=== PATIENT | female | born 1975 | race African-American/Black ===

== ENCOUNTER 2017-05-12 17:16 | Emergency (ER) | payer OTHER ==
[2017-05-12] MEDS ORDERED: Adenosine 6 MG/2 ML VIAL ONE (17:36)
[2017-05-12 18:22] LABS: #Eosinphils 0.2 thou/uL (0.0-0.7); #Lymphocytes 2.5 thou/uL (1.20-3.40); #Monocytes 0.4 thou/uL (0.11-0.59); #Neutrophils 5.2 thou/uL (1.40-6.50); %Basophils 0.2 % (0.0-1.0); %Eosinophils 2.2 % (0.0-10.0); %Lymphocytes 30.5 % (21.0-51.0); %Monocytes 4.6 % (0.0-10.0); Hematocrit 37.1 % (36.0-47.0); Mean Platelet Volume 7.2 fL (7.4-10.4); Red Blood Cell (RBC) Count 3.98 mill/uL (4.20-5.40); White Blood Cell (WBC) Count 8.3 thou/uL (4.8-10.8)
[2017-05-12 18:51] LABS: Troponin I Less than 0.010 ng/mL (< 0.028)
[2017-05-12 19:30] LABS: ALT (SGPT) 7 U/L (8-55); AST (SGOT) 14 U/L (5-34); Alkaline Phosphatase 79 U/L (40-150); Anion Gap 12 mmol/L (10-20); BUN (Urea Nitrogen) 10 mg/dL (7.0-18.7); Bilirubin, Total 0.5 mg/dL (0.2-1.2); Calc. Creatinine Clearance 0 mL/min (70-130); Calcium 8.6 mg/dL (7.8-10.44); Carbon Dioxide 19 mmol/L (22-29); Chloride 110 mmol/L (98-107); Estimated GFR-MDRD Greater than 90; Globulin 3.6 g/dL (2.4-3.5); Protein, Total 7.3 g/dL (6.0-8.3)
--- NOTE | 2017-05-12 20:26 | RAD ---
PORTABLE CHEST 05/12/17 PROVIDED CLINICAL HISTORY: Heart palpitations. FINDINGS: Comparison 08/09/16. Cardiac and mediastinal silhouette is within normal limits for portable technique. The lungs appear c lear. No pleural fluid or pneumothorax apparent. IMPRESSION: No evidence for an acute cardiopulmonary process. POS: [facility]
== END 2017-05-12 20:12 | disposition home or self-care (01) ==
LOC: ERS 17:16
DX: I47.1 Supraventricular tachycardia (principal); I10 Essential (primary) hypertension
CPT/HCPCS: 36415; 71010; 80053; 82553; 83880; 84484; 85025; 93005; 96361; 96374; J0153

== ENCOUNTER 2018-08-02 11:47 | Emergency (ER) | payer BC, SELFPAY ==
[2018-08-02 12:34] LABS: #Eosinphils 0.2 thou/uL (0.0-0.7); #Lymphocytes 1.8 thou/uL (1.20-3.40); #Monocytes 0.2 thou/uL (0.11-0.59); #Neutrophils 4.2 thou/uL (1.40-6.50); %Basophils 0.4 % (0.0-1.0); %Eosinophils 2.5 % (0.0-10.0); %Lymphocytes 28.5 % (21.0-51.0); %Monocytes 3.5 % (0.0-10.0); %Neutrophils 65.1 % (42.0-75.0); Hemoglobin 12.6 g/dL (12.0-16.0); Mean Corpuscular HGB CONC 30.4 g/dL (32.0-36.0); Mean Corpuscular Hemoglobin 28.1 pg (27.0-31.0); Mean Corpuscular Volume 92.3 fL (78.0-98.0); Platelet Count 248 thou/uL (130-400); RBC Distribution Width 12.7 % (11.5-14.5); Red Blood Cell (RBC) Count 4.49 mill/uL (4.20-5.40); White Blood Cell (WBC) Count 6.4 thou/uL (4.8-10.8)
[2018-08-02 12:55] LABS: ALT (SGPT) 9 U/L (8-55); AST (SGOT) 11 U/L (5-34); Albumin 4.1 g/dL (3.5-5.0); Alkaline Phosphatase 102 U/L (40-150); Anion Gap 9 mmol/L (10-20); BUN (Urea Nitrogen) 12 mg/dL (7.0-18.7); Bilirubin, Total 0.5 mg/dL (0.2-1.2); CK (CPK) 98 U/L (29-168); Calc. Creatinine Clearance 0 mL/min (70-130); Calcium 9.4 mg/dL (7.8-10.44); Carbon Dioxide 28 mmol/L (22-29); Chloride 106 mmol/L (98-107); Estimated GFR-MDRD Greater than 90; Globulin 3.6 g/dL (2.4-3.5); Glucose 94 mg/dL (70-105); Lipase 16 U/L (8-78); Potassium 4.3 mmol/L (3.5-5.1); Protein, Total 7.7 g/dL (6.0-8.3); Sodium 139 mmol/L (136-145)
--- NOTE | 2018-08-02 13:58 | RAD ---
CHEST 1 VIEW: Date: 08/02/18 HISTORY: Palpitations, heart fluttering intermittently for 3 days. COMPARISON: 05/12/17. FINDINGS: Heart size is normal. The lungs are clear. No confluent pneumonia, overt edema, or pleural effusion. IMPRESSION: No acute intrathoracic disease. Stable from prior study. POS: [facility]
--- NOTE | 2018-08-06 12:02 | EKG ---
Test Reason : Blood Pressure : / mmHG Vent. Rate : 087 BPM Atrial Rate : 087 BPM P-R Int : 156 ms QRS Dur : 080 ms QT Int : 358 ms P-R-T Axes : 061 005 028 degrees QTc Int : 430 ms Sinus rhythm with sinus arrhythmia with occasional Premature ventricular complexes Otherwise normal ECG Confirmed by JUAN ALEXANDER DO ([id number]), graphics editor JENNY BHAKTA ([id number]) on 08/06/2018 12:02:01 PM Referred By: Confirmed By:JUAN ALEXANDER DO
== END 2018-08-02 13:27 | disposition home or self-care (01) ==
LOC: ERS 11:47
DX: R00.2 Palpitations (principal); I10 Essential (primary) hypertension
CPT/HCPCS: 36415; 71045; 80053; 82550; 83690; 84484; 85025; 93005

== ENCOUNTER 2019-01-01 10:07 | Emergency (ER) | payer BC ==
[2019-01-01] MEDS ORDERED: diphenhydrAMINE 50 MG/ML VIAL ONE (10:39)
[2019-01-01] MEDS ORDERED: Acetaminophen 500 MG TAB ONE (10:39)
[2019-01-01] MEDS ORDERED: Prochlorperazine 10 MG/2 ML VIAL ONE (10:42)
[2019-01-01] MEDS ORDERED: Prochlorperazine 10 MG/2 ML VIAL IVP SCH (11:00)
[2019-01-01 11:15] LABS: #Eosinphils 0.2 thou/uL (0.0-0.7); #Lymphocytes 1.8 thou/uL (1.20-3.40); #Monocytes 0.3 thou/uL (0.11-0.59); #Neutrophils 5.4 thou/uL (1.40-6.50); %Basophils 0.5 % (0.0-1.0); %Eosinophils 2.1 % (0.0-10.0); %Lymphocytes 23.7 % (21.0-51.0); %Monocytes 3.3 % (0.0-10.0); %Neutrophils 70.4 % (42.0-75.0); Mean Corpuscular HGB CONC 33.4 g/dL (32.0-36.0); Mean Corpuscular Hemoglobin 30.1 pg (27.0-31.0); Mean Corpuscular Volume 90.2 fL (78.0-98.0); Mean Platelet Volume 7.1 fL (7.4-10.4); Platelet Count 245 thou/uL (130-400); RBC Distribution Width 12.6 % (11.5-14.5); Red Blood Cell (RBC) Count 4.31 mill/uL (4.20-5.40); White Blood Cell (WBC) Count 7.6 thou/uL (4.8-10.8)
[2019-01-01 11:30] LABS: ALT (SGPT) 12 U/L (8-55); AST (SGOT) 14 U/L (5-34); Albumin 3.8 g/dL (3.5-5.0); Alkaline Phosphatase 101 U/L (40-150); Anion Gap 12 mmol/L (10-20); BUN (Urea Nitrogen) 9 mg/dL (7.0-18.7); Bilirubin, Total 0.5 mg/dL (0.2-1.2); CK (CPK) 92 U/L (29-168); Calc. Creatinine Clearance 0 mL/min (70-130); Calcium 9.4 mg/dL (7.8-10.44); Carbon Dioxide 25 mmol/L (22-29); Chloride 109 mmol/L (98-107); Estimated GFR-MDRD Greater than 90; Glucose 99 mg/dL (70-105); Potassium 3.8 mmol/L (3.5-5.1); Protein, Total 7.8 g/dL (6.0-8.3); Sodium 142 mmol/L (136-145)
--- NOTE | 2019-01-01 11:34 | CT ---
NONCONTRAST CT HEAD: HISTORY: Headache. COMPARISON: 01/03/2015. FINDINGS: There is no evidence of a hemorrhage, acute infarction, mass effect, or midline shift. There has bee n no interval change compared to the prior exam. IMPRESSION: No acute intracranial abnormality is demonstrated. POS: [facility]
[2019-01-01] MEDS ORDERED: Ketorolac Tromethamine 30 MG/ML VIAL ONE (12:05)
== END 2019-01-01 12:47 | disposition home or self-care (01) ==
LOC: SCSER 10:07
DX: R51 Headache (principal); I10 Essential (primary) hypertension; Z79.899 Other long term (current) drug therapy
CPT/HCPCS: 70450; 80053; 82550; 84484; 85025; 93005; 96361; 96374; 96375; J0780; J1200; J1885

== ENCOUNTER 2019-01-09 05:06 | Emergency (ER) | payer BC | END 2019-01-09 05:50 | disposition home or self-care (01) | LOC: ERS 05:06 | DX: R21 Rash and other nonspecific skin eruption (principal); I10 Essential (primary) hypertension; G43.909 Migraine, unspecified, not intractable, without status migrainosus | CPT/HCPCS: 99282 ==

== ENCOUNTER 2019-07-11 08:48 | Emergency (ER) | payer BC, SELFPAY | END 2019-07-11 10:43 | disposition home or self-care (01) | LOC: ERS 08:48 | DX: J02.9 Acute pharyngitis, unspecified (principal); H65.90 Unspecified nonsuppurative otitis media, unspecified ear; I10 Essential (primary) hypertension; G43.909 Migraine, unspecified, not intractable, without status migrainosus | CPT/HCPCS: 87081; 87430; 99283 ==

== ENCOUNTER 2020-03-20 11:48 | Emergency (ER) | payer SELFPAY ==
--- NOTE | 2020-03-20 12:17 | RAD ---
Portable frontal chest radiograph: 03/20/2020 COMPARISON: 08/02/2018 HISTORY: Sudden onset of chest pain FINDINGS: Lungs are clear. Heart and mediastinal contours appear within normal limits. IMPRESSION: No acute findings.
[2020-03-20 12:25] LABS: #Eosinphils 0.1 thou/uL (0.0-0.7); #Lymphocytes 2.3 thou/uL (1.20-3.40); #Monocytes 0.3 thou/uL (0.11-0.59); #Neutrophils 4.7 thou/uL (1.40-6.50); %Basophils 0.3 % (0.0-1.0); %Eosinophils 1.7 % (0.0-10.0); %Lymphocytes 30.7 % (21.0-51.0); %Monocytes 4.5 % (0.0-10.0); %Neutrophils 62.9 % (42.0-75.0); Hemoglobin 12.9 g/dL (12.0-16.0); Mean Corpuscular HGB CONC 33.2 g/dL (32.0-36.0); Mean Corpuscular Hemoglobin 30.6 pg (27.0-31.0); Mean Corpuscular Volume 92.3 fL (78.0-98.0); Mean Platelet Volume 7.9 fL (7.4-10.4); Platelet Count 225 thou/uL (130-400); RBC Distribution Width 12.2 % (11.5-14.5); White Blood Cell (WBC) Count 7.5 thou/uL (4.8-10.8)
[2020-03-20 12:48] LABS: ALT (SGPT) 9 U/L (8-55); AST (SGOT) 12 U/L (5-34); Albumin 3.8 g/dL (3.5-5.0); Alkaline Phosphatase 108 U/L (40-110); Anion Gap 9 mmol/L (10-20); BUN (Urea Nitrogen) 13 mg/dL (7.0-18.7); Bilirubin, Total 0.4 mg/dL (0.2-1.2); CK (CPK) 141 U/L (29-168); Calc. Creatinine Clearance 0 mL/min (70-130); Calcium 9.1 mg/dL (7.8-10.44); Carbon Dioxide 28 mmol/L (22-29); Chloride 106 mmol/L (98-107); Estimated GFR-MDRD Greater than 90; Globulin 3.8 g/dL (2.4-3.5); Glucose 104 mg/dL (70-105); Lipase 24 U/L (8-78); Potassium 3.8 mmol/L (3.5-5.1); Protein, Total 7.6 g/dL (6.0-8.3); Sodium 139 mmol/L (136-145)
[2020-03-20 14:48] LABS: Troponin I Less than 0.010 ng/mL (< 0.028)
== END 2020-03-20 15:19 | disposition home or self-care (01) ==
LOC: ERS 11:48 → EEVIPCON 11:48 → ERS 15:19
DX: R07.9 Chest pain, unspecified (principal); I10 Essential (primary) hypertension; G43.909 Migraine, unspecified, not intractable, without status migrainosus
CPT/HCPCS: 36415; 71045; 80053; 82550; 83690; 83880; 84484; 85025; 85379; 93005

== ENCOUNTER 2020-08-22 07:38 | Emergency (ER) | payer SELFPAY ==
[2020-08-22] MEDS ORDERED: Metoclopramide HCl 10 MG/2 ML VIAL ONE (08:24)
[2020-08-22] MEDS ORDERED: diphenhydrAMINE 50 MG/ML VIAL ONE (08:24)
[2020-08-22] MEDS ORDERED: Ketorolac Tromethamine 30 MG/ML VIAL ONE (08:24)
[2020-08-22 09:04] LABS: Hemoglobin 13.5 g/dL (12.0-16.0); Mean Corpuscular HGB CONC 31.9 g/dL (32.0-36.0); Mean Corpuscular Hemoglobin 29.4 pg (27.0-31.0); Mean Corpuscular Volume 92.3 fL (78.0-98.0); Platelet Count 268 thou/uL (130-400); RBC Distribution Width 12.6 % (11.5-14.5); Red Blood Cell (RBC) Count 4.59 mill/uL (4.20-5.40); White Blood Cell (WBC) Count 6.6 thou/uL (4.8-10.8)
[2020-08-22 09:11] LABS: ALT (SGPT) 8 U/L (8-55); AST (SGOT) 11 U/L (5-34); Alkaline Phosphatase 111 U/L (40-110); Anion Gap 10 mmol/L (10-20); BUN (Urea Nitrogen) 11 mg/dL (7.0-18.7); Bilirubin, Total 0.5 mg/dL (0.2-1.2); Calc. Creatinine Clearance 0 mL/min (70-130); Calcium 9.4 mg/dL (7.8-10.44); Carbon Dioxide 28 mmol/L (22-29); Chloride 106 mmol/L (98-107); Globulin 4.1 g/dL (2.4-3.5); Glucose 105 mg/dL (70-105); Potassium 3.6 mmol/L (3.5-5.1); Protein, Total 8.1 g/dL (6.0-8.3); Sodium 140 mmol/L (136-145)
[2020-08-22 09:34] LABS: Eosinophils 1 % (0-10); Lymphocytes 51 % (21-51); MDiff Complete? YES; Monocytes 4 % (0-10); Neutrophil 44 % (42-75); Platelet Morphology Comment Appears Adequate; RBC Morphology Normal
== END 2020-08-22 10:52 | disposition home or self-care (01) ==
LOC: ERS 07:38
DX: G43.909 Migraine, unspecified, not intractable, without status migrainosus (principal); R07.89 Other chest pain; I10 Essential (primary) hypertension
CPT/HCPCS: 71045; 80053; 84484; 85025; 93005; 94760; 96365; 96375; J1200; J1885; J2765

== ENCOUNTER 2020-08-24 17:21 | Emergency (ER) | payer SELFPAY ==
[2020-08-24] MEDS ORDERED: diphenhydrAMINE 50 MG/ML VIAL ONE (18:26)
[2020-08-24] MEDS ORDERED: Prochlorperazine 10 MG/2 ML VIAL IVP SCH (18:45)
[2020-08-24] MEDS ORDERED: Ketorolac Tromethamine 30 MG/ML VIAL ONE (20:37)
== END 2020-08-24 21:00 | disposition home or self-care (01) ==
LOC: ERS 17:21
DX: G43.909 Migraine, unspecified, not intractable, without status migrainosus (principal)
CPT/HCPCS: 70496; 96374; 96375; J0780; J1200; J1885

== ENCOUNTER 2021-06-03 16:41 | Emergency (ER) | payer OTHER ==
[2021-06-03 17:41] LABS: Hemoglobin 13.6 g/dL (12.0-16.0); Mean Corpuscular Hemoglobin 30.3 pg (27.0-31.0); Mean Corpuscular Volume 94.7 fL (78.0-98.0); Mean Platelet Volume 7.5 fL (7.4-10.4); Platelet Count 282 thou/uL (130-400); Red Blood Cell (RBC) Count 4.49 mill/uL (4.20-5.40); White Blood Cell (WBC) Count 5.5 thou/uL (4.8-10.8)
[2021-06-03 18:06] LABS: Band 4 % (5-11); Eosinophils 4 % (0-10); Lymphocytes 49 % (21-51); MDiff Complete? YES; Monocytes 7 % (0-10); Neutrophil 32 % (42-75); Platelet Morphology Comment Appears Adequate; RBC Morphology Normal; Reactive Lymphocytes 4 % (0-10)
== END 2021-06-03 18:36 | disposition home or self-care (01) ==
LOC: ERS 16:41
DX: R07.89 Other chest pain (principal); R20.2 Paresthesia of skin; K04.7 Periapical abscess without sinus; G43.909 Migraine, unspecified, not intractable, without status migrainosus
CPT/HCPCS: 36415; 71045; 84484; 85025; 93005

== ENCOUNTER 2021-10-16 11:31 | Emergency (ER) | payer OTHER | END 2021-10-16 13:24 | disposition home or self-care (01) | LOC: ERS 11:31 | DX: M25.561 Pain in right knee (principal); G43.909 Migraine, unspecified, not intractable, without status migrainosus ==

== ENCOUNTER 2022-01-11 14:47 | Emergency (ER) | payer OTHER ==
[2022-01-11 15:26] LABS: #Eosinphils 0.2 thou/uL (0.0-0.7); #Lymphocytes 2.5 thou/uL (1.20-3.40); #Monocytes 0.1 thou/uL (0.11-0.59); #Neutrophils 5.5 thou/uL (1.40-6.50); %Basophils 0.3 % (0.0-1.0); %Eosinophils 2.6 % (0.0-10.0); %Lymphocytes 29.7 % (21.0-51.0); %Monocytes 0.9 % (0.0-10.0); %Neutrophils 66.5 % (42.0-75.0); Hemoglobin 12.9 g/dL (12.0-16.0); Mean Corpuscular HGB CONC 32.6 g/dL (32.0-36.0); Mean Corpuscular Hemoglobin 30.4 pg (27.0-31.0); Mean Corpuscular Volume 93.3 fL (78.0-98.0); Mean Platelet Volume 7.6 fL (7.4-10.4); Platelet Count 255 thou/uL (130-400); RBC Distribution Width 12.5 % (11.5-14.5); Red Blood Cell (RBC) Count 4.23 mill/uL (4.20-5.40); White Blood Cell (WBC) Count 8.3 thou/uL (4.8-10.8)
[2022-01-11 15:44] LABS: ALT (SGPT) Less than 7 U/L (8-55); AST (SGOT) 10 U/L (5-34); Alkaline Phosphatase 118 U/L (40-110); Anion Gap 14 mmol/L (10-20); BUN (Urea Nitrogen) 11 mg/dL (7.0-18.7); Bilirubin, Total 0.4 mg/dL (0.2-1.2); Calc. Creatinine Clearance 0 mL/min (70-130); Calcium 9.2 mg/dL (7.8-10.44); Carbon Dioxide 24 mmol/L (22-29); Chloride 104 mmol/L (98-107); Estimated GFR 88; Globulin 3.9 g/dL (2.4-3.5); Glucose 121 mg/dL (70-105); Lipase 29 U/L (8-78); Potassium 3.7 mmol/L (3.5-5.1); Protein, Total 7.9 g/dL (6.0-8.3); Sodium 138 mmol/L (136-145)
[2022-01-11] MEDS ORDERED: Metoclopramide HCl 10 MG/2 ML VIAL ONE (15:45)
[2022-01-11] MEDS ORDERED: methylPREDNISolone Sod Succ/PF 125 MG/2 ML VIAL ONE (15:45)
[2022-01-11] MEDS ORDERED: Ketorolac Tromethamine 30 MG/ML VIAL ONE (15:46)
[2022-01-11] MEDS ORDERED: diphenhydrAMINE 50 MG/ML VIAL ONE (15:46)
== END 2022-01-11 17:16 | disposition home or self-care (01) ==
LOC: ERS 14:47
DX: G43.909 Migraine, unspecified, not intractable, without status migrainosus (principal); I10 Essential (primary) hypertension; Z79.899 Other long term (current) drug therapy
CPT/HCPCS: 71045; 80053; 83690; 84484; 85025; 93005; 96374; 96375; J1200; J1885; J2765; J2930

== ENCOUNTER 2022-01-12 00:34 | Emergency (ER) | payer OTHER ==
[2022-01-12] MEDS ORDERED: Ondansetron ODT 4 MG TAB ONE (01:26)
[2022-01-12] MEDS ORDERED: Meclizine HCl 25 MG TAB ONE ×3 (01:30→02:53)
[2022-01-12] MEDS ORDERED: Diazepam 5 MG TAB ONE (03:51)
== END 2022-01-12 04:26 | disposition home or self-care (01) ==
LOC: ERS 00:34
DX: R42 Dizziness and giddiness (principal); I10 Essential (primary) hypertension; Z79.899 Other long term (current) drug therapy
CPT/HCPCS: 70450; Q0162

== ENCOUNTER 2022-06-20 13:29 | Emergency (ER) | payer OTHER ==
[2022-06-20] MEDS ORDERED: Acetaminophen 500 MG TAB ONE (14:09)
[2022-06-20] MEDS ORDERED: diphenhydrAMINE 50 MG/ML VIAL ONE (14:09)
[2022-06-20] MEDS ORDERED: Metoclopramide HCl 10 MG/2 ML VIAL ONE (14:09)
[2022-06-20 14:10] LABS: #Basophils 0.1 thou/uL (0.0-0.2); #Eosinphils 0.3 thou/uL (0.0-0.7); #Lymphocytes 2.9 thou/uL (1.20-3.40); #Monocytes 0.4 thou/uL (0.11-0.59); #Neutrophils 4.7 thou/uL (1.40-6.50); %Eosinophils 3.3 % (0.0-10.0); %Lymphocytes 34.7 % (21.0-51.0); %Monocytes 4.5 % (0.0-10.0); %Neutrophils 56.7 % (42.0-75.0); Hemoglobin 13.5 g/dL (12.0-16.0); Mean Corpuscular HGB CONC 32.4 g/dL (32.0-36.0); Mean Corpuscular Hemoglobin 29.3 pg (27.0-31.0); Mean Corpuscular Volume 90.4 fl (78.0-98.0); Mean Platelet Volume 7.9 fL (7.4-10.4); Platelet Count 261 10x3/uL (130-400); Red Blood Cell (RBC) Count 4.63 mill/uL (4.20-5.40); White Blood Cell (WBC) Count 8.2 10x3/uL (4.8-10.8)
[2022-06-20 14:43] LABS: ALT (SGPT) 9 U/L (8-55); AST (SGOT) 13 U/L (5-34); Alkaline Phosphatase 113 U/L (40-110); Anion Gap 13 mmol/L (10-20); BUN (Urea Nitrogen) 10 mg/dL (7.0-18.7); Bilirubin, Total 0.5 mg/dL (0.2-1.2); Calc. Creatinine Clearance 0 mL/min (70-130); Calcium 9.7 mg/dL (7.8-10.44); Carbon Dioxide 25 mmol/L (22-29); Chloride 106 mmol/L (98-107); Estimated GFR 73; Globulin 4.2 g/dL (2.4-3.5); Glucose 87 mg/dL (70-105); Potassium 4.1 mmol/L (3.5-5.1); Protein, Total 8.2 g/dL (6.0-8.3); Sodium 140 mmol/L (136-145)
[2022-06-20] MEDS ORDERED: Iopamidol-370 76% 500 ML 1 ML ONE (15:43)
== END 2022-06-20 16:36 | disposition home or self-care (01) ==
LOC: ERS 13:29
DX: R51.9 Headache, unspecified (principal); R20.2 Paresthesia of skin
CPT/HCPCS: 36415; 70496; 71045; 80053; 84484; 85025; 93005; 96365; 96375; J1200; J2765; Q9967

== ENCOUNTER 2023-07-21 17:59 | Emergency (ER) | payer OTHER ==
[2023-07-21] MEDS ORDERED: fentaNYL 50 mcg/mL 1 mL Vial ONE (19:04)
[2023-07-21] MEDS ORDERED: PROPOFOL 0 ML ONE (19:26)
[2023-07-21] MEDS ORDERED: Morphine 4 MG/ML VIAL ONE ×2 (19:38→20:54)
[2023-07-21] MEDS ORDERED: PROPOFOL 20 ML ONE (19:38)
== END 2023-07-21 21:07 | disposition home or self-care (01) ==
LOC: ERS 17:59
DX: S43.014A Anterior dislocation of right humerus, initial encounter (principal); W01.0XXA Fall on same level from slipping, tripping and stumbling without subsequent striking against object, initial encounter; Y99.0 Civilian activity done for income or pay
CPT/HCPCS: 23650; 71045; 96374; 96375; 99156; 99157; J2270; J2704; J3010